=== PATIENT | male | born 2000 | race Two or more races ===

== ENCOUNTER 2025-06-06 19:55 | Emergency (ER) | payer OTHER, SELFPAY ==
[2025-06-06 19:56] VITALS: BMI 35.2
[2025-06-06 20:14] VITALS: BP 138/90; PULSE 83; RESP 18; TEMP 37.2; O2SAT 98
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
--- NOTE | 2025-06-06 20:54 | XR_ITS ---
Examination: Forearm, right, 2 views. Technique: Forearm, AP, lateral 2 views Date and time of exam: June 06, 2025, 2057 hrs. Indications: Laceration to the arm 3 days ago with swelling and redness Findings: No fracture. No cortical bone destruction No elbow effusion No foreign body Impression: No cortical bone destruction No elbow effusion No foreign body
[2025-06-06 21:17] LABS: Basophils # (Auto) 0.0 Thou/mm3 (0.0-0.2); Basophils % (Auto) 1 % (0-2.5); Eosinophils # (Auto) 0.3 Thou/mm3 (0.0-0.5); Eosinophils % (Auto) 4 % (0-10); Hematocrit 46.1 % (41.0-53.0); Hemoglobin 16.1 g/dL (13.5-16.0); Immature Granulocytes Auto 0.02 Thou/mm3 (0.00-0.00); Lymphocytes # (Auto) 3.3 Thou/mm3 (1.0-4.8); Lymphocytes % (Auto) 45 % (10-50); Mean Corpuscular HGB Conc 34.9 g/dl (31.0-37.0); Mean Corpuscular Hemoglobin 31.4 pg (25.0-35.0); Mean Corpuscular Volume 90 fL (80-100); Monocytes # (Auto) 1.0 Thou/mm3 (0.0-0.8); Monocytes % (Auto) 13 % (0-12); Neutrophils # (Auto) 2.8 Thou/mm3 (1.8-7.7); Neutrophils % (Auto) 37 % (37-80); Nucleated Red Blood Cell # 0.00 Thou/mm3 (0.00-0.00); Nucleated Red Blood Cell % 0 /100 WBC (0); Platelet Count 240 Thou/mm3 (140-440); RDW Standard Deviation 39.3 fL (35.1-43.9); Red Blood Count 5.12 Miln/mm3 (4.50-5.90); White Blood Count 7.4 Thou/mm3 (3.8-10.6)
[2025-06-06 21:35] LABS: Alanine Aminotransferase 40 U/L (10-49); Albumin, Serum 5.0 gm/dL (3.5-5.0); Albumin/Globulin Ratio 1.9 (1.2-2.2); Alkaline Phosphatase 110 U/L (46-116); Anion Gap 10 (7-16); Aspartate Amino Transferase 32 U/L (0-34); BUN/Creatinine Ratio 13 Ratio (12-20); Bilirubin,Total 0.5 mg/dL (0.3-1.2); Blood Urea Nitrogen 13 mg/dL (9-23); Calcium 10.1 mg/dL (8.3-10.6); Calcium (Corrected) 10.1 mg/dL (8.5-10.1); Carbon Dioxide 27.5 mMol/L (20.0-31.0); Chloride 104 mMol/L (98-107); Creatinine (Component) 1.0 mg/dL (0.6-1.3); Estimated Creatinine Clearance 148.4 mL/min (>60); Globulin 2.7 gm/dL (2.3-3.5); Glucose 92 mg/dL (74-106); Osmolality,Calculated 281 (275-295); Potassium 3.8 mMol/L (3.4-5.1); Sodium 141 mMol/L (136-145); Total Protein 7.7 gm/dL (5.7-8.2); eGFR > 60 See Note
[2025-06-06] MEDS: TRIMETHOPRIM/SULFA 160/800 DS TABLET 1 TAB PO (23:55)
[2025-06-07 00:14] VITALS: BP 132/76; PULSE 76; RESP 16; TEMP 36.8; O2SAT 98
== END 2025-06-07 00:15 | disposition home or self-care (01) ==
PROVIDERS: Emergency Provider Emergency Medicine
DX: S51.811A Laceration without foreign body of right forearm, initial encounter (principal); X99.0XXA Assault by sharp glass, initial encounter; Y92.59 Other trade areas as the place of occurrence of the external cause
CPT/HCPCS: 36415; 73090; 80053; 83605; 85025; 99284; A9270

== ENCOUNTER 2025-06-07 21:26 | Emergency (ER) | payer MEDICAID, SELFPAY ==
[2025-06-07 21:26] VITALS: BMI 33.5
--- NOTE | 2025-06-07 23:04 | EDNOTE_ITS ---
ED General RME/HPI General Chief complaint: Wound/Laceration Stated complaint: WOUND RECHECK Time Seen by Provider: 06/07/25 23:08 Arrival date/time: 06/07/25 21:26 RME / HPI RME / HPI narrative: José Miguel is a 25 y/o male with no apparent past medical history comes in for further evaluation of right forearm laceration.Patient came in yesterday for evaluation of laceration, however he was instructed to come in after taking antibiotics. Patient reports continuous drainage from the laceration. He denies any fever or chills or worsening pain over the forearm. No other complaints at this time. Related Data Previous Rx's ?Medication ?Instructions ?Recorded cephalexin 500 mg capsule 500 mg PO TID 1 week #21 cap s 06/06/25 sulfamethoxazole 800 1 tab PO BID 1 week #14 tabs 06/06/25 mg-trimethoprim 160 mg tablet Allergies Allergy/AdvReac Type Severity Reaction Status Date / Time No Known Allergies Allergy Verified 06/07/25 21:28 Review of Systems Review of Systems Narrative Review of Systems: Constitutional: No fever, chills, fatigue, weakness, weight loss HEENT: No eye pain, vision loss, ear pain, hearing loss, dysphagia, Cardiovascular: No chest pain, palpitations, edema, pain with walking Respiratory: No cough, shortness of breath, wheezing GI: No NVD, abdominal pain, constipation, blood in stool, loss of appetite, heartburn Extremities: No presence of pitting edema MSK: No back pain, joint pain, joint swelling Neuro: No dizziness, numbness, weakness, headaches, seizures, tremors Psych: No anxiety, depression ED Exam Narrative Physical exam: General: AAOx3, NAD, HEENT: Moist mucous membranes, conjunctiva clear, EOMI, PERRLA, Cardiovascular: S1, S2, radial pulses +2 bilat, RRR Pulmonary: CTAB bilat no cough, no wheezing GI: No tenderness to light or deep palpitation, no guarding, rigidity, rebound tenderness or distension Extremities: No presence of trace or pitting edema in lower extremities bilaterally, dorsalis pedis pulses +2 bilaterally, right forearm shows some mild serosanguineous drainage, minimal erythema, multiple casey, no open wound at this time, healing Neuro: AAOx3, no focal motor or sensory deficits in the UE or LE bilat Psych: Good judgement, thought and behavior Course Quality Measures none Orders Category Date Time Status Wound Care [Wound Care] NOW Care 06/07/25 23:07 Active Vital Signs Vital signs: Vital Signs Temperature 98.6 F 06/07/25 23:28 Pulse Rate 71 06/07/25 23:28 Respiratory Rate 19 06/07/25 23:28 Blood Pressure 131/81 H 06/07/25 23:28 Pulse Oximetry (%) 96 06/07/25 23:28 Oxygen Delivery Method Room Air 06/07/25 23:28 Discharge Plan Plan Patient Disposition: HOME (Self Care) Patient condition on transfer: Stable Prescriptions/Referrals Prescriptions/Med Rec: Continued cephalexin 500 mg capsule 500 mg PO TID 7 Days Qty: 21 0RF Rx Instructions: Take one capsule by mouth three times a day sulfamethoxazole-trimethoprim 800-160 mg tablet 1 tab PO BID 7 Days Qty: 14 0RF Rx Instructions: Take one tablet by mouth twice a day Problem List Clinical Impression: Laceration Patient/Caregiver Discharge Instructions Discharge Activity: activity as tolerated Additional Instructions: Discharge instructions Follow-up with your PCP within 1 week Take your Antibiotics as prescribed Bactrim and Keflex Come back to the ED within one week for further evaluation of wound Return to ED if your symptoms worsen or return Print Language: Anguillan Stand Alone Forms: Kaylee Award Info., Patient Portal Info Letter MD Attestation Attestation I, Dr. Mas, have reviewed the history, exam, and assessment of the patient. I have evaluated the patient independently and agree with the plan of care documented by the resident Dr. Titus. All diagnostic studies were reviewed and discussed. I confirm the diagnosis as documented by the resident. I was present during the Medical Decision Making for this patient. The patient?s plan of care was created between myself and the resident and consistent with our discussion of the patient?s case. I saw this patient at the bedside with the resident. There is no evidence of erythema that is worse from yesterday. It is not hot to touch. No pus from the wound. Patient is aware that he will need to return in 1 week to get 1 or 2 sutures placed for delayed healing. Return precautions given and understood. Staple/Suture Removal Site Assessment Suture/Staple Site: Clean, Drainage and Swollen [place] Removed?: Yes Number of [place] Removed: 1 Sutures Removed?: No Additional comment Seroangious fluid coming out of wound. One staple removed to allow for drainage.
[2025-06-07 23:28] VITALS: BP 131/81; PULSE 71; RESP 19; TEMP 37; O2SAT 96
== END 2025-06-07 23:48 | disposition home or self-care (01) ==
LOC: SERX 23:54
DX: S51.811D Laceration without foreign body of right forearm, subsequent encounter (principal); X58.XXXD Exposure to other specified factors, subsequent encounter
CPT/HCPCS: 99284

== ENCOUNTER 2025-06-11 21:54 | Emergency (ER) | payer MEDICAID, SELFPAY ==
[2025-06-11 21:55] VITALS: BMI 33.5
[2025-06-11] MEDS: CLINDAMYCIN PHOS INJ 150 MG/ML VIAL 6 ML 600 MG IM (22:32)
--- NOTE | 2025-06-11 22:37 | EDNOTE_ITS ---
ED Wound/Laceration-RME/HPI General Chief Complaint: Wound Recheck / Suture Removal Stated Complaint: WOUND RECHECK RT ARM Time Seen by Provider: 06/11/25 22:02 Arrival date/time: 06/11/25 21:54 This is a case of 25-year-old male who came in in the emergency room for wound check and reevaluation and possible staple removal patient had laceration repair 1 week prior to arrival in the emergency room patient had a injury on the right forearm where they placed a 8 casey on the right anterior forearm patient went back 06/07/2025 due to wound dehiscence and infection were the provider removed the 1 casey on the right forearm patient also discharged with cephalexin and Bactrim patient came here for wound check or reevaluation Limitations: no limitations Related Data Previous Rx's ?Medication ?Instructions ?Recorded cephalexin 500 mg capsule 500 mg PO TID 1 week #21 cap s 06/06/25 sulfamethoxazole 800 1 tab PO BID 1 week #14 tabs 06/06/25 mg-trimethoprim 160 mg tablet mupirocin 2 % topical ointment 1 applic topical TID #2 2 grams 06/11/25 (Centany) Allergies Allergy/AdvReac Type Severity Reaction Status Date / Time No Known Allergies Allergy Verified 06/07/25 21:28 Review of Systems Review of Systems Systems Reviewed: All systems reviewed, normal except as documented Constitutional Constitutional: Reports system reviewed and no additional complaints, except as documented and Reports as per HPI Cardiovascular Cardiovascular: Reports system reviewed and no additional complaints, except as documented and Reports as per HPI Respiratory Respiratory: Reports system reviewed and no additional complaints, except as documented and Reports as per HPI Gastrointestinal Gastrointestinal: Reports system reviewed and no additional complaints, except as documented and Reports as per HPI Musculoskeletal Musculoskeletal: Reports system reviewed and no additional complaints, except as documented and Reports as per HPI Integumentary/Breasts Skin/Breast: Reports system reviewed and no additional complaints, except as documented and Reports as per HPI Neurologic Neurologic: Reports system reviewed and no additional complaints, except as documented and Reports as per HPI Past Medical History Social History SMOKING STATUS: Never smoker ED Exam General Limitations: Present no limitations General appearance: Present alert, in no apparent distress and other (Patient is awake alert oriented not in distress nontoxic looking well-hydrated well- nourished) Head Head exam: Present atraumatic, normocephalic and normal inspection Eye Eye exam: Present normal appearance, PERRL and EOMI ENT ENT exam: Present normal exam, normal oropharynx and mucous membranes moist Neck Neck exam: Present normal inspection, full ROM and trachea midline; Absent tenderness, meningismus, lymphadenopathy or thyromegaly Chest Chest inspection: Present normal inspection and symmetric chest wall rise Respiratory Respiratory exam: Present normal lung sounds bilaterally; Absent respiratory distress, wheezes, stridor, accessory muscle use or prolonged expiratory phase Cardiovascular Cardiovascular exam: Present regular rate, normal rhythm, normal heart sounds and JVD; Absent bradycardia, tachycardia, irregular rhythm, systolic murmur or diastolic murmur Abdominal Exam Abdominal exam: Present soft and normal bowel sounds; Absent distention, tenderness, guarding, rebound, rigidity, diminished bowel sounds, hyperactive bowel sounds, hypoactive bowel sounds or organomegaly Extremities Exam Extremities exam: Present normal inspection and full ROM Expanded Upper Extremity Exam Forearm/Wrist exam: Present tenderness, swelling, erythema and other (ROM intact neurovascular intact); Absent abrasion, laceration, ecchymosis, deformity, crepitus, dislocation, tenderness over anatomical snuff box or pain with axial thumb loading Back Exam Back exam: Present normal inspection and full ROM Neurological Exam Neurological exam: Present alert, oriented X3, CN II-XII intact, normal gait and reflexes normal; Absent motor sensory deficit Psychiatric Psychiatric exam: Present normal affect and normal mood Skin Skin exam: Present warm, dry, intact, normal color and other (Noted laceration repair by casey approximately 5 cm noted wound dehiscence with some redness swelling and discharge with 7 casey which is intact no abscess no cellulitis) Course Quality Measures none Orders Category Date Time Status Clindamycin Vial [Cleocin vial] Med 06/11/25 22:29 Discontinued 600 mg IM X1 ONE Vital Signs Vital signs: Oxygen saturation is normal vital signs stable Wound / Laceration MDM Narrative MDM Narrative:: This is a case of 25-year-old male who came in in the emergency room for wound check and reevaluation and possible staple removal patient had laceration repair 1 week prior to arrival in the emergency room patient had a injury on the right forearm where they placed a 8 casey on the right anterior forearm patient went back 06/07/2025 due to wound dehiscence and infection were the provider removed the 1 casey on the right forearm patient also discharged with cephalexin and Bactrim patient came here for wound check or reevaluation physical examination patient is awake alert oriented not in distress nontoxic looking well-hydrated well-nourished noted wound on the right forearm positive wound dehiscence patient has clear discharge with some redness and mild swelling but no cellulitis no abscess wound was cleaned with normal saline I was able to remove the 2 casey and 1 staple near the wound dehiscence apply triple antibiotic ointment and covered with nonadherent gauze due to wound dehiscence the patient was given clindamycin IM 600 mg and the patient will continue the cephalexin and Bactrim he was also advised to return in the emergency room in 2 days for reevaluation and for removal of the rest of the casey wound care daily is advised and finish the course of antibiotic he will return in the emergency room in 2 days for wound check for any worsening symptoms or any emergent concern return precaution in the ER was advised Patient was discharged with comfortable condition walking with stable gait. Patient verbalized no further complains explained diagnosis and answered patient question. Patient is comfortable with the proposed management plan including the need to follow up with his/her primary care physician and any specialist if applicable Discussed patient for any urgent condition or worsening sx, He/She needed to go to emergency room immediately or call 911. Patient acknowledge the responsibility to follow up as instructed and to monitor her/his symptoms. For any persistence of the symptoms for more than 3-5 days return precaution advised. Discussed the result of the test and was given printed discharge instruction Patient data External records reviewed:: [facility] previous records Clinical information provided by:: patient Social determinants that could affect healthcare access:: none Patient has the following chronic illnesses:: None How is presenting disease/condition affected by chronic disease/condition?: no chronic disease Evaluation data The following diagnostics were reviewed and interpreted by me:: other (specify) (None) Lab and/or radiology exams considered but not ordered:: None Interpretation Summary: None Medications / Prescriptions Medications or Prescriptions considered but not ordered:: Given Medication administrations:: Medication Administration History Discontinued Medications Clindamycin Phosphate (Clindamycin Phos Inj 150 Mg/Ml Vial 6 Ml) 600 mg IM X1 ONE Stop: 06/11/25 22:30 Last Admin: 06/11/25 22:32 Dose: 600 mg Documented By: SM Given Consultations Consultation(s) initiated? (list below): No Diagnosis Wound Differential Diagnosis: abscess Most likely diagnosis given after review of the tests above:: Wound dehiscence Admission Indicated Admission indicated?: not indicated Explain why admission is indicated or not indicated:: Not indicated Admission Request Was there a request for admission?: No Admission Attestation Admission request attestation: Not indicated Disposition Plan Disposition Plan: Discharge Discharge Attestation Discharge Attestation: The patient and all family members were given an opportunity to ask questions and understood the discharge instructions. Discharge instructions specifically effects, indications for sooner follow up or return to the emergency department, and the expected course of current diagnosis. Patient condition: Stable Discharge Plan Plan Patient Disposition: HOME (Self Care) Patient condition on transfer: Stable Prescriptions/Referrals Prescriptions/Med Rec: New mupirocin [Centany] 2 % ointment 1 applic topical TID Qty: 22 0RF No Action cephalexin 500 mg capsule 500 mg PO TID 7 Days Qty: 21 0RF Rx Instructions: Take one capsule by mouth three times a day sulfamethoxazole-trimethoprim 800-160 mg tablet 1 tab PO BID 7 Days Qty: 14 0RF Rx Instructions: Take one tablet by mouth twice a day Problem List Clinical Impression: Visit for wound check, Dehiscence of wound, Encounter for removal of casey Patient/Caregiver Discharge Instructions Education Materials: Wound Care Dc, ED Laceration: Infected Repair, ED Stitches/Staple Removal No ..., ED Wound Check (Infection) Additional Instructions: Follow-up with your primary care physician in 2 days for reevaluation return to the emergency room in 2 days for reevaluation and wound check and for removal of the rest of the casey worsening symptoms or any emergent concerns such as redness swelling discharge from the wound pain fever chills return to the emergency room immediately or call 911 keep wound clean and dry wound care daily continue Bactrim and cephalexin as directed by the previous provider Dr. Adams Print Language: Sami Stand Alone Forms: Kaylee Award Info., Patient Portal Info Letter PA/TAPE DECK INSTALLER Supervising Physician PA/TAPE DECK INSTALLER Supervising Physician: Dr. Adams
== END 2025-06-11 22:39 | disposition home or self-care (01) ==
PROVIDERS: Emergency Provider Emergency Medicine
DX: T81.33XA Disruption of traumatic injury wound repair, initial encounter (principal); S51.811D Laceration without foreign body of right forearm, subsequent encounter; X58.XXXD Exposure to other specified factors, subsequent encounter; Y84.8 Other medical procedures as the cause of abnormal reaction of the patient, or of later complication, without mention of misadventure at the time of the procedure
CPT/HCPCS: 96372; 99282; J0736

== ENCOUNTER 2025-06-13 21:13 | Emergency (ER) | payer MEDICAID, SELFPAY ==
[2025-06-13 21:14] VITALS: BMI 33.5
[2025-06-13 22:12] VITALS: BP 129/68; PULSE 74; RESP 16; TEMP 36.7; O2SAT 97
--- NOTE | 2025-06-13 22:36 | EDNOTE_ITS ---
ED Wound/Laceration-RME/HPI General Chief Complaint: Wound Recheck / Suture Removal Stated Complaint: RECHECK WOUND R FA Time Seen by Provider: 06/13/25 22:33 Arrival date/time: 06/13/25 21:13 25M with no significant PMH presents to ED with wound check for healing RUE lac from 2 weeks ago. This patient's 4th visit. Patient has been taking prescribed ABX and cream. Limitations: no limitations Related Data Previous Rx's ?Medication ?Instructions ?Recorded mupirocin 2 % topical ointment 1 applic topical TID #2 2 [facility] Allergies Allergy/AdvReac Type Severity Reaction Status Date / Time No Known Allergies Allergy Verified 06/13/25 21:17 Review of Systems Review of Systems Systems Reviewed: All systems reviewed, normal except as documented Past Medical History Social History SMOKING STATUS: Current every day smoker ED Exam General Limitations: Present no limitations General appearance: Present alert and in no apparent distress Head Head exam: Present atraumatic Neck Neck exam: Present normal inspection, full ROM and trachea midline Chest Chest inspection: Present normal inspection and symmetric chest wall rise Extremities Exam Extremities exam: Present full ROM Expanded Upper Extremity Exam Forearm/Wrist exam: Present full ROM and laceration (R healing) Neurological Exam Neurological exam: Present alert and oriented X3 Psychiatric Psychiatric exam: Present normal affect and normal mood Skin Skin exam: Present warm, dry, intact and normal color Course Quality Measures none Vital Signs Vital signs: Vital Signs Temperature 98.0 F 06/13/25 22:12 Pulse Rate 74 06/13/25 22:12 Respiratory Rate 16 06/13/25 22:12 Blood Pressure 129/68 06/13/25 22:12 Pulse Oximetry (%) 97 06/13/25 22:12 Oxygen Delivery Method Room Air 06/13/25 22:12 O2 at 97% on RA and WNLs Wound / Laceration MDM Narrative MDM Narrative:: 25M with no significant PMH presents to ED with wound check for healing RUE lac from 2 weeks ago. This patient's 4th visit. Patient has been taking prescribed ABX and cream. Physical exam reveals mild dehiscence of R forearm lac with 4 casey, which were removed. Minimal redness around wound. No obvious tenderness or swelling. Some non-purulent discharge. Patient is afebrile, calm, and alert. Wound cleaned and bandaged. [employer] given including to follow-up with PCP and have wound covered with Mupirocin 29/03. Patient data External records reviewed:: [facility] previous records Clinical information provided by:: patient Social determinants that could affect healthcare access:: none Patient has the following chronic illnesses:: none How is presenting disease/condition affected by chronic disease/condition?: no chronic disease Evaluation data The following diagnostics were reviewed and interpreted by me:: other (specify) (none) Lab and/or radiology exams considered but not ordered:: not ordered Interpretation Summary: n/a Medications / Prescriptions Medications or Prescriptions considered but not ordered:: not ordered Medication administrations:: n/a Consultations Consultation(s) initiated? (list below): No Diagnosis Wound Differential Diagnosis: laceration, abrasion, avulsion of skin and other (dehiscence of wound) Most likely diagnosis given after review of the tests above:: dehiscence of wound, laceration Admission Indicated Admission indicated?: not indicated Admission Request Was there a request for admission?: No Disposition Plan Disposition Plan: Discharge Discharge Attestation Discharge Attestation: The patient and all family members were given an opportunity to ask questions and understood the discharge instructions. Discharge instructions specifically effects, indications for sooner follow up or return to the emergency department, and the expected course of current diagnosis. Patient condition: Stable Discharge Plan Plan Patient Disposition: HOME (Self Care) Discharge Disposition comment: Stable Prescriptions/Referrals Prescriptions/Med Rec: No Action mupirocin [Centany] 2 % ointment 1 applic topical TID Qty: 22 0RF Problem List Clinical Impression: Dehiscence of wound, Laceration Patient/Caregiver Discharge Instructions Education Materials: ED INFECTED LACERATION Not Sutured Additional Instructions: Please follow-up with PCP within 24-48 hours and return immediately if symptoms worsen. Keep wound moist with the Mupirocin cream. Follow-up with PCP. Print Language: Slovenian Stand Alone Forms: Patient Portal Info Letter JESSY/KASSIE Supervising Physician JESSY/KASSIE Supervising Physician: Dr. Adams
== END 2025-06-13 23:27 | disposition home or self-care (01) ==
LOC: SERX 06-14 00:37
PROVIDERS: Emergency Provider Emergency Medicine
DX: T81.33XA Disruption of traumatic injury wound repair, initial encounter (principal); S51.811D Laceration without foreign body of right forearm, subsequent encounter; X58.XXXD Exposure to other specified factors, subsequent encounter; Y84.8 Other medical procedures as the cause of abnormal reaction of the patient, or of later complication, without mention of misadventure at the time of the procedure
CPT/HCPCS: 99284